=== PATIENT | male | born 1985 | race Caucasian/White ===

== ENCOUNTER 2016-07-14 21:13 | Emergency (ER) | payer SELFPAY ==
[~2016-07-14] VITALS: Ht 188 cm; Wt 96.4 kg
[~2016-07-14 21:13] MED LIST: IBUP800T23 PO
[2016-07-14 21:17] VITALS: BP 142/99; PULSE 103; RESP 18; TEMP 98.3; O2SAT 97
[2016-07-14] MEDS ORDERED: LIDOCAINE 1%/EPINEPHrine 1:100,000 SOLN 20 ML VIAL INFIL ONE (22:00)
--- NOTE | 2016-07-14 22:05 | PD ---
HPI Chief Complaint: Skin Problem Time Seen by Provider: 21:45 Travel History International Travel<30 days: No Contact w/Intl Traveler<30days: No Traveled to known affect area: No History of Present Illness HPI 31-year-old male presents to the emergency room for evaluation of a skin lesion to his right posterior neck. Patient first noticed it 4 days ago. States he has been squeezing it and getting clear/yellow fluid. States since first noticing it, it has grown in size and become more painful. Pain is radiating into his neck and causing headaches. He has been applying Hibiclens and other topical ointments without significant relief in symptoms. Patient denies fever , chills, nausea, vomiting. No chronic medical conditions or to any medications. PFSH Past Medical History Hx Anticoagulant Therapy: No Anxiety: Yes Depression: No Heart Rhythm Problems: No Cancer: No Cardiovascular Problems: Yes High Cholesterol: No Chemotherapy: No Chest Pain: No Congestive Heart Failure: No Cerebrovascular Accident: No Diabetes: No Diminished Hearing: No Endocrine: No Gastrointestinal Disorders: No Genitourinary: Yes Hypertension: Yes (MOTHER HAS HYPERTENSION) Immune Disorder: No Implanted Vascular Access Dvce: Yes Kidney Stones: Yes Musculoskeletal: No Neurologic: No Psychiatric: Yes Reproductive: No Respiratory: No Seizures: No Thyroid Disease: No Tetanus Vaccination: > 5 Years Influenza Vaccination: No Past Surgical History Body Medical Devices: ORTHO HARDWARE Hysterectomy: No Oral Surgery: Yes (WISDOM TEETH) Other Surgery: Yes (11/09/14 ORIF LEFT CALCANEUS) Social History Alcohol Use: Yes (COUPLE DRINKS(RUM) ON WEEKENDS) Tobacco Use: Yes (1/2 PACK DAY) Substance Use: No Allergies-Medications (Allergen,Severity, Reaction): Coded Allergies: No Known Allergies (Verified , 07/14/16) Reported Meds & Prescriptions Reported Meds & Active Scripts Active No Active Prescriptions or Reported Medications Review of Systems Except as stated in HPI: all other systems reviewed are Neg Physical Exam Narrative GENERAL: Well-nourished, well-developed male in no acute distress. Afebrile. Ambulatory. SKIN: Focused skin assessment warm/dry. There is an indurated area in the right posterior neck which measures about 2 cm in diameter. It is fluctuant but there is no pointing or drainage. There is a zone of inflammation around it but no lymphangitis. HEAD: Normocephalic. EYES: No scleral icterus. No injection or drainage. NECK: Supple, trachea midline. No JVD or lymphadenopathy. CARDIOVASCULAR: Regular rate and rhythm without murmurs, gallops, or rubs. RESPIRATORY: Breath sounds equal bilaterally. No accessory muscle use. PSYCHIATRIC: No delusional thought processes. No hallucinations. Data Data Last Documented VS Vital Signs Date Time Temp Pulse Resp B/P Pulse Ox O2 Delivery O2 Flow Rate FiO2 07/14/16 21:17 98.3 103 18 142/99 97 Orders Wound Culture And Gram Stain (07/14/16 21:54) Lidocai-Epi 1%-1:100,000 Inj (Xylocaine- (07/14/16 22:00) MDM Medical Decision Making Medical Screen Exam Complete: Yes Emergency Medical Condition: Yes Medical Record Reviewed: Yes Differential Diagnosis Abscess versus folliculitis versus cellulitis Narrative Course 31-year-old male presents to the emergency room for evaluation of an abscess to his right posterior neck that he first noticed 4 days ago. Patient is afebrile and well-appearing in the emergency room. Resting comfortably in bed. Physical exam reveals a 2 cm abscess to the right posterior neck. It is tender to palpation. No surrounding lymphangitis. Abscess was drained, see procedure note for details. Patient discharged with prescription for Bactrim and told to follow up with a primary care physician or return to the emergency room for worsening symptoms. He understands and agrees to plan. Procedures Procedure Narrative INCISION AND DRAINAGE OF ABSCESS: The area was prepped and was sterilely draped. A subcutaneous wheal of 1% lidocaine with epinephrine with a total number 2 mL was used to anesthetize the area properly. A number 11 scalpel was used to make a 1 cm incision across the area of the abscess. The abscess was drained, complex loculations were broken down, and irrigated with normal saline. Cultures were obtained. Sterile dressing applied. Diagnosis Primary Impression: Abscess of skin of neck Referrals: Primary Care Physician Patient Instructions: Abscess (ED), General Instructions Additional Instructions: Rest and drink plenty of fluids. Take Bactrim as directed, until gone. Follow up with a primary care physician. Return to emergency room for worsening symptoms, as discussed. Med/Other Pt SpecificInfo: Prescription(s) given Scripts Sulfamethoxazole-Trimethoprim (Bactrim DS)800-160 Mg Tab1 Tab PO BID #20 TAB Ref 0 Prov:Sabino Landeros MD 07/14/16 Disposition: 01 DISCHARGE HOME Condition: Stable Donna Carey July 14, 2016 22:05
[2016-07-14] MEDS ORDERED: BACT800T5 PO (22:24)
== END 2016-07-14 22:40 | disposition home or self-care (01) ==
LOC: PHED 21:13 → PHEFT 22:40
DX: L02.11 Cutaneous abscess of neck (principal); I10 Essential (primary) hypertension; F17.200 Nicotine dependence, unspecified, uncomplicated
CPT/HCPCS: 10060; 86403; 87070; 87186; 87205

== ENCOUNTER 2016-09-10 16:48 | Emergency (ER) | payer SELFPAY ==
[~2016-09-10] VITALS: Ht 188 cm; Wt 100.0 kg
[~2016-09-10 16:48] MED LIST changes: +BACT800T5 PO; -IBUP800T23 PO
[2016-09-10 16:51] VITALS: BP 137/80; PULSE 104; RESP 20; TEMP 98.7; O2SAT 98
--- NOTE | 2016-09-10 17:44 | PD ---
Physical Exam Date Seen by Provider: Sep 10, 2016 Time Seen by Provider: 17:43 Narrative 31 yo male here for evaluation of possible skin infection to the back of his neck. He works for the water department. Unclear etiology. has not gotten better. Has seen providers for this before. Taken antibiotics. Continues to come back. Vitals are stable. Awaiting bed placement. Data Data Last Documented VS Vital Signs Date Time Temp Pulse Resp B/P Pulse Ox O2 Delivery O2 Flow Rate FiO2 09/10/16 16:51 98.7 104 20 137/80 98 Room Air [facility] Medical Record Reviewed: Yes Supervised Visit with ANGELIC: No Thom Mak Sep 10, 2016 17:44
[2016-09-10] MEDS ORDERED: LIDOCAINE HCL 1% 50 ML VIAL INFIL ONE (20:15)
[2016-09-10] MEDS ORDERED: HYDROmorphone HCL PF 1 MG/ML VIAL IM ONE (20:15)
--- NOTE | 2016-09-10 20:56 | PD ---
Physical Exam Time Seen by Provider: 20:55 Data Data Last Documented VS Vital Signs Date Time Temp Pulse Resp B/P Pulse Ox O2 Delivery O2 Flow Rate FiO2 09/10/16 16:51 98.7 104 20 137/80 98 Room Air Orders Hydromorphone Pf Inj (Dilaudid Pf Inj) (09/10/16 20:15) Lidocaine 1% Inj (50 Ml) (Xylocaine 1% I (09/10/16 20:15) Wound Culture And Gram Stain (09/10/16 20:12) MDM Medical Record Reviewed: Yes Supervised Visit with ANGELIC: No Procedures Procedure Narrative INCISION AND DRAINAGE OF ABSCESS: The area was prepped and was sterilely draped. A subcutaneous wheal of 1% Xylocaine WITHOUT epi. A total number 5 mL was used to anesthetize the area. The area was properly anesthetized. A number 11 scalpel was used to make a 1 -cm incision across the area of the abscess. Cultures were obtained. The abscess was drained an irrigated with normal saline. . Sterile dressing applied. Patient advised to have packing removed in two days. Scripts No Active Prescriptions or Reported Meds Condition: Stable Rosina Ceballos Sep 10, 2016 20:56
[2016-09-10] MEDS ORDERED: ONDANSETRON ODT 4 MG TAB PO ONE (21:00)
[2016-09-10] MEDS ORDERED: BACT800T5 PO (21:00)
[2016-09-10] MEDS ORDERED: NAPR500 PO (21:00)
[2016-09-10] MEDS ORDERED: HYDR-3533 PO (21:00)
--- NOTE | 2016-09-10 21:00 | PD ---
HPI Chief Complaint: Skin Problem Time Seen by Provider: 20:05 Travel History International Travel<30 days: No Contact w/Intl Traveler<30days: No Traveled to known affect area: No History of Present Illness HPI Is a 31-year-old man presents emergency department complaining of right arm abscess. He had an abscess in the back of his neck before. 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 He states that previously his wound grew MSSA. Over the past 4 days he has worsening painful tenderness and swelling to the right arm. He had a acutely worse today. He is straining a little bit of pus. History Past Medical History Narrative Medical Skin abscess Social History Alcohol Use: Yes (COUPLE DRINKS(RUM) ON WEEKENDS) Tobacco Use: Yes (1/2 PACK DAY) Allergies-Medications (Allergen,Severity, Reaction): Coded Allergies: No Known Allergies (Verified , 09/10/16) Reported Meds & Prescriptions Reported Meds & Active Scripts Active No Active Prescriptions or Reported Medications Review of Systems Except as stated in HPI: all other systems reviewed are Neg Physical Exam Narrative GENERAL: 31-year-old man, no acute distress. SKIN: Warm and dry. CARDIOVASCULAR: Warm and well perfused. RESPIRATORY: Normal rate and effort. MUSCULOSKELETAL: Induration and erythema in the right arm and the lateral brachium. There is a lot of surrounding erythema. There is warmth and tenderness. There is minimal fluctuance in the immediate anterior aspect of the arm. NEUROLOGICAL: Awake and alert. No gross deficits. Data Data Last Documented VS Vital Signs Date Time Temp Pulse Resp B/P Pulse Ox O2 Delivery O2 Flow Rate FiO2 09/10/16 16:51 98.7 104 20 137/80 98 Room Air Orders Hydromorphone Pf Inj (Dilaudid Pf Inj) (09/10/16 20:15) Lidocaine 1% Inj (50 Ml) (Xylocaine 1% I (09/10/16 20:15) Wound Culture And Gram Stain (09/10/16 20:12) Ondansetron Odt (Zofran Odt) (09/10/16 21:00) MDM Medical Decision Making Medical Screen Exam Complete: Yes Emergency Medical Condition: Yes Differential Diagnosis Abscess, cellulitis, other Narrative Course Medical decision making Year-old woman presents to the emergency department with abscess the right arm. Restrained. Moderate amount of purulent drainage. A a lot of induration. Recommend warm compresses antibiotics and outpatient follow-up. Diagnosis Primary Impression: Abscess of right arm Departure Forms: Tests/Procedures, Work Release Enter return to work date: Sep 12, 2016 Additional Instructions: Take antibiotics as prescribed. Apply warm compresses 4 times daily. Return the emergency department for any worsening pain redness swelling fevers or any other new or worsening symptoms. Med/Other Pt SpecificInfo: Prescription(s) given Scripts Naproxen (Naprosyn)500 Mg [id number] Mg PO BID PRN (PAIN SCALE 1 TO 10) #20 TAB Prov:Sesar French MD 09/10/16 Hydrocodone-Acetaminophen (Lortab)5-325 Mg Tab1-2 Tab PO Q6H PRN (PAIN) #12 TAB Prov:Sesar French MD 09/10/16 Sulfamethoxazole-Trimethoprim (Bactrim DS)800-160 Mg Tab1 Tab PO BID #20 TAB Ref 0 Prov:Sesar French MD 09/10/16 Disposition: 01 DISCHARGE HOME Condition: Stable Sesar French MD Sep 10, 2016 21:00
[2016-09-10 21:10] VITALS: RESP 18
== END 2016-09-10 21:20 | disposition home or self-care (01) ==
LOC: NEPC 16:48
DX: L02.413 Cutaneous abscess of right upper limb (principal); F17.200 Nicotine dependence, unspecified, uncomplicated; Z79.899 Other long term (current) drug therapy
CPT/HCPCS: 10061; 86403; 87070; 87186; 96372; 99284; J1170; 87205